=== PATIENT | female | born 1960 | race American Indian/Alaskan Native ===

== ENCOUNTER 2018-07-28 13:53 | Emergency (ER) | payer MEDICAID, OTHER ==
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
[2018-07-29 04:58] VITALS: BP 120/78
== END 2018-07-29 01:30 | disposition home or self-care (01) ==
LOC: ED 13:53
DX: Z04.1 Encounter for examination and observation following transport accident (principal); I10 Essential (primary) hypertension; E11.9 Type 2 diabetes mellitus without complications; Z88.6 Allergy status to analgesic agent; Z88.1 Allergy status to other antibiotic agents
CPT/HCPCS: 99282